=== PATIENT | male | born 1985 | race Asian ===

== ENCOUNTER 2024-05-10 10:39 | Emergency (ER) | payer OTHER, SELFPAY ==
[2024-05-10 10:54] VITALS: BP 145/88; PULSE 68; RESP 16; TEMP 36.2; O2SAT 100; BMI 26.0
[2024-05-10 11:46] LABS: Appearance Urine Clear (Clear); Bilirubin Urine Negative (Negative); Blood Urine 2+ (Negative); Color Urine Yellow (Yellow); Glucose Urine Negative (Negative); Ketones Urine Negative (Negative); Leukocyte Esterase Urine Negative (Negative); Nitrite Urine Negative (Negative); Protein Urine Negative (Negative); Urobilinogen Urine 0.2 (0.2-1.0)
[2024-05-10 11:55] LABS: WBC Urine 0-2 (0-5)
--- NOTE | 2024-05-10 12:38 | ED_ITS ---
HPI - General Adult General Date Seen: 05/10/24 Chief complaint: Back Injury/Pain Stated complaint: lower back pain/kidney stone Time Seen by Provider: 05/10/24 12:01 Source: patient and motor vehicle parts interpreter Mode of arrival: ambulatory Limitations: language barrier History of Present Illness HPI narrative: Patient is a 38-year-old male here for evaluation of left lumbar pain which he feels is related to kidney stone. He is Sinhala, does not speak much Haitian and an motor vehicle parts interpreter was used to help with obtaining history. He notes that yesterday around noon he had onset of left flank pain which felt similar to prior kidney stones. It resolved but then recurred again today. He says last time he had a kidney stone he received a medication which helped him to pass the stone faster. He takes Celebrex chronically for gout, he started this a few months ago. He has not taken anything else for pain. He has not had problems with nausea or vomiting, no fevers or chills. No dysuria. He has never needed instrumentation or urology follow-up for kidney stones. He denies other medical history aside from gout and kidney stones. He does smoke, he says he drinks a little bit on the weekends. Related Data Previous Rx's ?Medication ?Instructions ?Recorded oxycodone 5 mg tablet 5 mg PO Q6H PRN pain #7 tabs 05/10/24 tamsulosin 0.4 mg capsule (Flomax) 0.4 mg PO DAILY #10 caps 05/10/24 Allergies Allergy/AdvReac Type Severity Reaction Status Date / Time No Known Drug Allergies Allergy Verified 05/10/24 10:59 Review of Systems Status of ROS: Reports: 6 or more systems reviewed and unremarkable except as noted in History and below Exam Narrative: Exam Narrative: Vital signs as noted above. In general, an alert, well-appearing patient. Looks comfortable. Head: Normocephalic, atraumatic. Eyes: Pupils are equal reactive. Extraocular movements are full. Conjunctivae are normal. ENT: Mucous membranes are moist. Neck: Supple without lymphadenopathy. Heart: Regular rate and rhythm. No murmur or rub. Lungs: Clear bilaterally. No increased work of breathing, crackles or wheezes. Abdomen: Soft and nontender. No organomegaly. Back: Nontender to palpation, no CVA tenderness. Extremities: Well perfused. No edema. No calf tenderness. Pulses intact. Neurologic: Patient is alert and oriented to person and place. Speech is fluent. Face is symmetric. Moves all extremities equally. Affect: Normal. Skin: Warm and dry. Well perfused. Const: Vital Signs, click to edit/add: Vital Signs - 24 hr 05/10/24 10:54 Temperature 97.1 F L Pulse Rate [Pulse Oximeter] 68 Respiratory Rate 16 Blood Pressure [Ri ght Upper Arm] 145/88 H Pulse Oximetry 100 Oxygen Delivery Me thod Room Air Course Course ED Course: In speaking with him about his symptoms, he says he really does not think he needs imaging today. He has always been able to pass the stones previously and would like to try that 1st. He does request what of her medicine he had last time, he is not sure what it is but I presume he is talking about Flomax. I have prescribed that for him, talked about adequate fluid intake, I have also given him oxycodone, 8 tablets from [facility] if he needs it for more severe pain. Otherwise, I have asked him to follow up with primary care if he has not passed the stone and or symptoms do not improve over the next 1-2 weeks. At that time I would recommend CT scanning to confirm diagnosis and determine size of stone if present. If at any time he has severe uncontrolled pain, vomiting, fevers or significant dysuria, I have advised him he should return to the emergency department. Continue Celebrex. Vital Signs Vital signs: Initial Vital Signs Temperature 97.1 F L 05/10/24 10:54 Temperature Source Temporal Artery Scan 05/10/24 10:54 Pulse Rate 68 05/10/24 10:54 Respiratory Rate 16 05/10/24 10:54 Blood Pressure 145/88 H 05/10/24 10:54 Blood Pressure Mean 107 H 05/10/24 10:54 Blood Pressure Position Sitting 05/10/24 10:54 Pulse Oximetry 100 05/10/24 10:54 Oxygen Delivery Method Room Air 05/10/24 10:54 Vital Signs Temperature 97.1 F L 05/10/24 10:54 Pulse Rate 68 05/10/24 10:54 Respiratory Rate 16 05/10/24 10:54 Blood Pressure 145/88 H 05/10/24 10:54 Pulse Oximetry 100 05/10/24 10:54 Oxygen Delivery Method Room Air 05/10/24 10:54 Temperature 97.1 F L 05/10/24 10:54 Pulse Rate 68 05/10/24 10:54 Respiratory Rate 16 05/10/24 10:54 Blood Pressure 145/88 H 05/10/24 10:54 Pulse Oximetry 100 05/10/24 10:54 Oxygen Delivery Method Room Air 05/10/24 10:54 Medical Decision Making Lab Data Labs: Lab Results 05/10/24 Range/Units 11:37 Urine Color Yellow (Yellow) Urine Appearance Clear (Clear) Urine pH 6.0 (5.0-8.5) Ur Specific [place] 1.010 (1.000-1.030) Urine Protein Negative (Negative) Urine Glucose (UA) Negative (Negative) Urine Ketones Negative (Negative) Urine Blood 2+ A (Negative) Urine Nitrite Negative (Negative) Urine Bilirubin Negative (Negative) Urine Urobilinogen 0.2 (0.2-1.0) Ur Leukocyte Esterase Negative (Negative) Urine RBC 2-5 A (0-2) Urine WBC 0-2 (0-5) Ur Squamous Epith Cells None (None-Few) Urine Bacteria None (None) Discharge Plan Discharge Clinical Impression: Kidney stone on left side Patient Disposition: Home, Self-Care Condition: Stable Instructions: Kidney Stones (ED) Additional Instructions: Make sure you are drinking plenty of fluids. Strain urine. Flomax as prescribed, this is the medication you passed the stone more quickly. I have also prescribed a few oxycodone if you need them for severe pain. If your pain does not improve/you do not pass a stone in the next 1-2 weeks, you should be seen by primary care. We have not done imaging today to definitively determined that you have a kidney stone, and if you do, we have not determine whether not it is too large to pass on its own. If at any time you have severe uncontrolled pain, new symptoms such as fever, nausea, vomiting, chills or significant pain with urination, please return to the emergency department. Clinic follow-up if needed, . Prescriptions: New tamsulosin [Flomax] 0.4 mg capsule 0.4 mg PO DAILY Qty: 10 2RF oxycodone 5 mg tablet 5 mg PO Q6H PRN (Reason: pain) Qty: 7 0RF Stand Alone Forms: Buffer Info Instructions
== END 2024-05-10 12:45 | disposition home or self-care (01) ==
LOC: ED 12:25
PROVIDERS: Emergency Provider Emergency Medicine
DX: N20.0 Calculus of kidney (principal)
CPT/HCPCS: 81001; 99283; 99284